=== PATIENT | female | born 1980 | race Caucasian/White ===

== ENCOUNTER 2016-12-28 13:50 | Inpatient (IN) | payer OTHER ==
[~2016-12-28] VITALS: Ht 165.1 cm; Wt 95.1 kg
[2016-12-28 13:53] VITALS: Ht 165.1 cm; Wt 95.1 kg
[2016-12-28 13:54] VITALS: BP 112/70; RESP 18
[2016-12-28] MEDS ORDERED: PREN-93 PO (13:57)
[2016-12-28] MEDS ORDERED: LACTATED RINGER'S 1,000 ML IV ONE (15:00)
[2016-12-28 15:14] LABS: ADD SCAN DIFF NO
[2016-12-28 15:17] LABS: BASOPHILS % 0.2 % (0.0-2.0); EOSINOPHILS % 0.3 % (0.0-7.0); HEMATOCRIT 34.5 % (37.0-47.0); HEMOGLOBIN 11.9 g/dl (12.0-16.0); LYMPHOCYTES # 1.2 10^3/ul (0.8-2.9); LYMPHOCYTES % 13.8 % (15.0-51.0); MEAN CORPUSCULAR HEMOGLOBIN 31.8 pg (29.0-33.0); MEAN CORPUSCULAR HGB CONC 34.5 g/dl (32.0-37.0); MEAN CORPUSCULAR VOLUME 92.2 fl (82.0-101.0); MEAN PLATELET VOLUME 9.8 fl (7.4-10.4); MONOCYTE # 0.6 10^3/ul (0.3-0.9); MONOCYTES % 6.8 % (0.0-11.0); NEUTROPHIL # 6.9 10^3/ul (1.6-7.5); NEUTROPHILS % 78.3 % (39.0-77.0); PLATELET COUNT 214 10^3/UL (140-415); RED BLOOD COUNT 3.74 10^6/ul (4.20-5.40); RED CELL DISTRIBUTION WIDTH 12.5 % (11.5-14.5); WHITE BLOOD COUNT 8.8 10^3/ul (4.8-10.8)
[2016-12-28 15:20] LABS: ADD UMIC YES; URINE BILIRUBIN (Dip) 1+ (NEGATIVE); URINE BLOOD (Dip) 3+ (NEGATIVE); URINE COLOR DK. RED (YELLOW); URINE GLUCOSE (Dip) NEGATIVE (NEGATIVE); URINE KETONES (Dip) TRACE (NEGATIVE); URINE LEUKOCYTE ESTERASE (Dip) NEGATIVE (NEGATIVE); URINE NITRITE (Dip) NEGATIVE (NEGATIVE); URINE TOTAL PROTEIN (Dip) 2+ (NEGATIVE); URINE UROBILINOGEN (Dip) 2.0 E.U./dL (0.1-1.0)
[2016-12-28 15:32] LABS: INR 0.93; PARTIAL THROMBOPLASTIN TIME 29.2 Sec (25.0-35.0); PROTIME 12.5 Sec (12.2-14.2)
--- NOTE | 2016-12-28 15:33 | RADRPT ---
PROCEDURE: US OB AND ULTRASOUND CERVIX. CLINICAL INDICATION: Vaginal bleeding TECHNIQUE: Multiple sonographic images of the pelvis and gravid uterus were obtained. The images were reviewed on a PACS workstation. Transvaginal images of the cervix were also obtained. COMPARISON: No prior studies are available for comparison. FINDINGS: The cervix is dilated up to 6 mm with echogenic debris within it. There is a single viable intrauterine gestation. Cardiac activity is present with 158 beats per min sunday. There is a vertex presentation. The placenta is posterior. There is no evidence for an abruption or placenta previa. There is a normal amount of amniotic fluid with an HUBER = 9.2 cm. Measurements were made in order to determine age. The results are as follows: BPD =7.9 cm HC =28.9 cm AC =28.6 cm FL =6.1 cm Estimated gestational age of approximately 32 weeks and 0 days based on ultrasound measurements. Clinical age: 30 weeks and 3 days. The estimated date of delivery is 02/22/2017, based on ultrasound measurements. The EFW = 1915 g, 90.6%, based on LMP age. RPTAT: AA IMPRESSION: Single viable intrauterine gestation of approximately 32 weeks and 0 days based on ultrasound measu rements. Dilated cervix up to 6 mm with echogenic debris within it. .Danial Eduardo MD, Date Time Electronically viewed and signed by .Danial Eduardo MD, on 12/28/2016 15:33 .S/
[2016-12-28 15:54] LABS: URINE RBCS >200 /HPF (0)
[2016-12-28 15:55] LABS: BACTERIA,URINE FEW; ICTOTEST NEGATIVE (NEGATIVE); SQUAMOUS EPITHELIAL CELL,UR MANY
[2016-12-28] MEDS ORDERED: MAGNESIUM SULFATE 4 GM/100 ML 100 ML IVPB ONE (17:00)
[2016-12-28] MEDS: LACTATED RINGER'S 1,000 ML IV SCH ×2 (17:01→23:00)
[2016-12-28 17:11] LABS: ALBUMIN/GLOBULIN RATIO 1.33; BILIRUBIN,INDIRECT 0.3 mg/dl (0-1.1); BILIRUBIN,TOTAL 0.3 mg/dl (0.2-1.3); CALCIUM 8.8 mg/dl (8.4-10.2); CREATININE 0.39 mg/dl (0.44-1.00); POTASSIUM 3.4 mmol/L (3.5-5.1)
[2016-12-28] MEDS: BETAMET NA PHOS/AC(6 MG/ML) 5ML INJ IM SCH (17:11)
[2016-12-28 17:23] LABS: ADD UMIC YES; URINE BILIRUBIN (Dip) NEGATIVE (NEGATIVE); URINE BLOOD (Dip) TRACE (NEGATIVE); URINE COLOR LT. YELLOW (YELLOW); URINE GLUCOSE (Dip) NEGATIVE (NEGATIVE); URINE KETONES (Dip) TRACE (NEGATIVE); URINE LEUKOCYTE ESTERASE (Dip) NEGATIVE (NEGATIVE); URINE NITRITE (Dip) NEGATIVE (NEGATIVE); URINE TOTAL PROTEIN (Dip) NEGATIVE (NEGATIVE); URINE UROBILINOGEN (Dip) 1.0 E.U./dL (0.1-1.0)
[2016-12-28] MEDS: MAGNESIUM SULFATE 20 GM/500 ML 500 ML IV SCH (17:34)
[2016-12-28 17:44] LABS: SQUAMOUS EPITHELIAL CELL,UR FEW; URINE RBCS 0-2 /HPF (0)
--- NOTE | 2016-12-28 21:12 | HP ---
DATE OF ADMISSION: 12/28/2016 HISTORY OF PRESENT ILLNESS: A 36-year-old female, 5, para 2-1-1-3, at 30 weeks' gestation presented with complaint of vaginal bleeding and spontaneous rupture of membranes. PAST MEDICAL HISTORY: Unremarkable. PAST SURGICAL HISTORY: section x3 and cholecystectomy. ALLERGIES: NO KNOWN ALLERGIES. FAMILY HISTORY: Noncontributory. PHYSICAL EXAMINATION: VITAL SIGNS: The patient is afebrile. Vital signs stable. HEAD, NECK AND CHEST: Within normal limits. ABDOMEN: Soft, nontender and gravid. EXTREMITIES: Within normal limits. NEUROLOGIC: Within normal limits. PELVIC: Vaginal bleeding was noted. There was fluid noted on the patient's pad. On external monitoring, contractions are noted. IMPRESSION: 1. at 30 weeks with previous section x3. 2. spontaneous rupture of membranes. 3. Threatened labor. PLAN: Admit, intravenous magnesium sulfate, intramuscular betamethasone, intravenous ampicillin and erythromycin. Perinatology consultation, neonatology consultation. Dictated By: AVELINO KOHLI/JUAN CARLOS Conf#: [id number] DID#: [id number] MTDD
[2016-12-28] MEDS: AMPICILLIN 2 GM/NS (PMX) 100 ML IVPB SCH (21:20)
[2016-12-28] MEDS: ERYTHROMYCIN LACTOBIONATE 500 MG in SOD CHLORIDE 0.9% 100 ML IVPB SCH (22:19)
[2016-12-29] MEDS: AMPICILLIN 2 GM/NS (PMX) 100 ML IVPB SCH ×5 (03:22→22:12)
[2016-12-29] MEDS: MAGNESIUM SULFATE 20 GM/500 ML 500 ML IV SCH ×3 (04:00→23:26)
[2016-12-29] MEDS: ERYTHROMYCIN LACTOBIONATE 500 MG in SOD CHLORIDE 0.9% 100 ML IVPB SCH ×4 (04:03→23:23)
[2016-12-29] MEDS: LACTATED RINGER'S 1,000 ML IV SCH ×3 (07:00→23:00)
--- NOTE | 2016-12-29 15:23 | PERINOTE ---
Date/Time of Note Date/Time of Note DATE: 12/29/16 TIME: 15:11 Assessment/Recommendations Assessment: labor, rupture of membranes Other Assessments size greater than expected. No recent diabetes screen results are provided. Recommendations: Would continue as you are doing with ampicillin/erythromycin for a total of 7 days, betamethasone x 2, magnesium sulfate only until betamethasone completed. Would consider HgbA1c due to large size with no recent diabetes screening documented. Would deliver for progressive labor, or maternal distress, including evidence of infection or at 34 weeks GA if the patient continues to lose amniotic fluid. OB Subjective Free Text/Dictaton Patient admitted with bleeding and loss of fluid, being treated for PPROM and labor HD# 2 IUP @ 30W1D Complaints/Overnight events Patient reports reduction in bleeding. US reveals EFW 90%ile. Prior US done in preinatology clinic have been consistent with LMP KELLY of 03/04/17. Current Medications Current Medications Lactated Ringer's 1,000 ml @ 125 mls/hr Q8H IV Last administered on 12/29/16 11:52; Admin Dose 125 MLS/HR; Start 12/28/16 at 15:00 Magnesium Sulfate (Magnesium Sulfate 20 Gm/500 ml) 500 ml @ 50 mls/hr Q10H IV Last administered on 12/29/16 13:17; Admin Dose 50 MLS/HR; Start 12/28/16 at 17: 00 Betamethasone Acet/Betameth SodPhos 12 mg 12 mg Q24H IM Last administered on 17:11; Admin Dose 12 MG; Start 12/28/16 at 17:00; Stop 12/29/16 at 17:01 Ampicillin 100 ml @ 100 mls/hr Q6 IVPB Last administered on 12/29/16 11:07; Admin Dose 100 MLS/HR; Start 12/28/16 at 21:00 Erythromycin Lactobionate/ Sodium Chloride (Erythromycin Lactobionate/NS) 100 ml @ 100 mls/hr Q6H IVPB Last administered on 12/29/16 09:57; Admin Dose 100 MLS/HR; Start 12/28/16 at 22:00 Past Medical History Medical History: no pertinent history Surgical History: cholecystectomy [employer] History: other (Prior x 3. Hemorrhage after third) Para: 3 (One delivery at 35 weeks) : 5 LMP (Females 10-50): Family History Significant Family History: no pertinent family hx OB Admission Exam Physical Exam Vitals: Vital Signs Date Time Temp Pulse Resp B/P Pulse Ox O2 Delivery O2 Flow Rate FiO2 12/28/16 13:54 98.2 18 112/70 Room Air 12/29/16 98.1 93 113/65 Heart: Rhythm Normal Lungs: Clear Abdomen: WNL Reflexes: Normal Heart Rate: 120's Accelerations: Accelerations Present Decelerations: No Decelerations Varibility: Moderate Contractions on Admission: None Last 72 hours Lab Results CBC & BMP 12/28/16 15:07 Liver Function Test 12/28/16 15:07 Alanine Aminotransferase (ALT/SGPT) 22 Albumin 4.0 Alkaline Phosphatase 285 H Aspartate Amino Transf (AST/SGOT) 16 Direct Bilirubin 0.00 Total Protein 7.0 Magnesium Level Test 12/29/16 00:36 12/29/16 06:11 12/29/16 12:07 Magnesium Level 4.8 H 5.2 *H 5.2 *H Copies To: CC: AVELINO PHAM MD, MARIE H MD Dec 29, 2016 15:23
[2016-12-29] MEDS: BETAMET NA PHOS/AC(6 MG/ML) 5ML INJ IM SCH (17:10)
[2016-12-29 18:16] LABS: BARBITURATES NEGATIVE (NEGATIVE); BENZODIAZEPINES NEGATIVE (NEGATIVE); CANNABINOIDS NEGATIVE (NEGATIVE); COCAINE NEGATIVE (NEGATIVE); OPIATES NEGATIVE (NEGATIVE)
--- NOTE | 2016-12-29 20:10 | QN ---
Documentation Comment c/o occasional contractions, leakage of fluid and vaginal bleeding. Afebrile VSS Abdomen soft NT Strip Reactive Stable Continue with magnesium sulfate, betamethasone, ampicillin and erythromycin. AVELINO PHAM MD Dec 29, 2016 20:10
[2016-12-29] MEDS ORDERED: ACETAMINOPHEN 325 MG TAB PO ONE (20:30)
[2016-12-30] MEDS: AMPICILLIN 2 GM/NS (PMX) 100 ML IVPB SCH ×4 (04:19→21:54)
--- NOTE | 2016-12-30 05:09 | QN ---
Documentation Comment Nurses unable to reach patient's physician, Dr. Izaguirre. Called me to assess vaginal bleeding. Patient is admitted for PPROM at 30 wks, h/o prior c/d x 3. SVE- FT/L/P; amniotic fluid mixed w blood noted previous sono showed placenta to be posterior A/P: c/w magnesium sulfate, s/p second dose of betamethasone will order sono to evaluate placenta and r/o abruption BIANCA MENDOZA MD Dec 30, 2016 05:09
[2016-12-30] MEDS: ERYTHROMYCIN LACTOBIONATE 500 MG in SOD CHLORIDE 0.9% 100 ML IVPB SCH ×4 (05:10→22:53)
[2016-12-30] MEDS: LACTATED RINGER'S 1,000 ML IV SCH ×2 (06:33→08:01)
--- NOTE | 2016-12-30 06:40 | RADRPT ---
PROCEDURE: ULTRASOUND OBSTETRICAL CLINICAL INDICATION: 36-year-old female with bleeding. TECHNIQUE: Multiple sonographic images of the pelvis were obtained. The images were reviewed on a PACS workstation. COMPARISON: Ultrasound OB December 28, 2016. FINDINGS: The cervix is not visualized. There is a single viable intrauterine gestation. Cardiac activity is present with 125 beats per minute. There is a vertex presentation. The placenta is posterior. There is no evidence for an abruption or placenta previa. IMPRESSION: Single viable intrauterine gestation with vertex presentation. .Cesar Malhotra MD, MD Date Time Electronically viewed and signed by .Cesar Malhotra MD, on 12/30/2016 06:40 .M/
[2016-12-30] MEDS: MAGNESIUM SULFATE 20 GM/500 ML 500 ML IV SCH ×2 (10:21→21:12)
--- NOTE | 2016-12-30 13:09 | CONS ---
DATE OF ADMISSION: 12/28/2016 DATE OF CONSULTATION: 12/30/2016 REFERRING PHYSICIAN: Chris Izaguirre MD I was asked to talk with this mother who is a 36-year-old 5, para 3, AB 1, living 3 with a 3 0.4 weeks' in labor. Mother's labs are as follows: Blood group O positi ve, RPR nonreactive, HBsAg negative, HIV negative and GBS unknown. Mother also had bleeding with pr eterm labor. She received betamethasone on 12/28/2016 and was also started on magnesium sulfate and antibiotics on 12/28/2016. The estimated weight is 1915 grams. EDC 03/05/2017. I spoke with mother about the fetus being 30.4 weeks at risk for respiratory distress, including quin atment with oxygen administration, high-flow nasal cannula, CPAP as well as ventilation if needed. I also discussed about the risks and benefits of oxygen administration as well as CPAP. Discussed a bout the possibility for administration of Curosurf if the 's oxygen requirement is greater th an 40% and if infant has respiratory distress syndrome. I also discussed about the risk of apnea of prematurity and treatment with caffeine as well as nasal cannula and CPAP if needed. Discussed abo ut risk of infection and treatment with antibiotics initially and subsequently to be monitored for s epsis. Also discussed about risk for hyperbilirubinemia, electrolyte imbalance, possible anemia and rare incidence of blood transfusion in this gestational age. Discussed about IV nutrition initiall y and infant to be started on feedings when clinically stable by tube feedings. Mother states that she did not breast feed any of the other children. Encouraged her to pump breast milk and provide a s the is premature and discussed about the benefits of breast milk. Discussed about increasi ng feedings gradually and weaning off IV fluids and possibility a PICC line placement if there is di fficulty with the IV access or feeding intolerance. Discussed also about risk of gastroesophageal r eflux as well as risk of necrotizing enterocolitis. Discussed about good prognosis with survival of greater than 95% and rare risk of complications incl uding intraventricular hemorrhage as well as risk of neurodevelopmental delay. Discussed about kylah th of hospitalization of 4 to 6 weeks or longer depending on 's clinical stability as well as treatment response. All parent's questions were answered. They were reassured about good prognosis and the discussion was concluded when parents had no further questions. Dictated By: DALIA NANCE/JUAN CARLOS Conf#: [id number] DID#: [id number]
--- NOTE | 2016-12-30 18:09 | QN ---
Documentation Comment No complaint Afebrile VSS Strip Categrory I Continue with present care. AVELINO PHAM MD Dec 30, 2016 18:09
--- NOTE | 2016-12-30 19:52 | RADRPT ---
PROCEDURE: Limited OB ultrasound. CLINICAL INDICATION: Amniotic fluid volume. Premature rupture of membranes TECHNIQUE: Sonographic evaluation to assess the amniotic fluid volume was performed. Transabdomin al imaging of the gravid uterus was performed. COMPARISON: 12/30/2016 FINDINGS: Single live intrauterine with cardiac activity is identified. The amniotic fluid in dex equals 5.4 cm. Cephalic presentation. Heart rate 122 beats per minute. Fundal grade 1 placent a. IMPRESSION: 1. Amniotic fluid index equals 5.4 cm. RPTAT: QQ .Alan Layton MD, MD Date Time Electronically viewed and signed by .Alan Layton MD, MD on 12/30/2016 19:51 .L/
[2016-12-31] MEDS: LACTATED RINGER'S 1,000 ML IV SCH ×4 (00:54→23:00)
[2016-12-31] MEDS: AMPICILLIN 2 GM/NS (PMX) 100 ML IVPB SCH ×4 (03:34→22:00)
[2016-12-31] MEDS: ERYTHROMYCIN LACTOBIONATE 500 MG in SOD CHLORIDE 0.9% 100 ML IVPB SCH ×4 (04:57→22:00)
--- NOTE | 2016-12-31 07:58 | RADRPT ---
PROCEDURE: XR Chest. CLINICAL INDICATION: Decreased breath sounds. TECHNIQUE: Single frontal chest x-ray. COMPARISON: None. FINDINGS: The lungs are clear. No focal opacification is seen. Lung volumes are diminished with compressive changes. The cardiomediastinal silhouette is unremarkable. The osseous structures are unremarkable . IMPRESSION: 1. Diminished lung volumes with compressive changes. 2. Otherwise, unremarkable chest x-ray. RPTAT: PP .Shan Davis MD, MD Date Time Electronically viewed and signed by .Shan Davis MD, on 12/31/2016 07:58 .B/
[2016-12-31] MEDS ORDERED: DOCUSATE SODIUM 100 MG CAP PO SCH (09:00)
[2016-12-31] MEDS ORDERED: FERROUS SULFATE (EC) 325 MG TAB PO SCH (09:00)
[2016-12-31] MEDS ORDERED: MULTIVIT/MIN/FOLATE/IRON/PREN TAB PO SCH (09:00)
--- NOTE | 2016-12-31 18:41 | QN ---
Documentation Comment Patient with occasional contractions, leakage of fluid and vaginal spotting. Afebrile VSS Abdomen soft NT Cervix closed Tracing Reactive Patient is off magnesium sulfate. Continue with antibiotics. AVELINO PHAM MD Dec 31, 2016 18:41
[2016-12-31] MEDS ORDERED: BUTORPHANOL 2 MG INJ IV PRN (19:00)
[2016-12-31 20:35] LABS: ADD SCAN DIFF NO
[2016-12-31 20:37] LABS: BASOPHILS % 0.2 % (0.0-2.0); HEMATOCRIT 31.9 % (37.0-47.0); HEMOGLOBIN 10.5 g/dl (12.0-16.0); LYMPHOCYTES # 1.4 10^3/ul (0.8-2.9); LYMPHOCYTES % 15.3 % (15.0-51.0); MEAN CORPUSCULAR HEMOGLOBIN 31.3 pg (29.0-33.0); MEAN CORPUSCULAR HGB CONC 32.9 g/dl (32.0-37.0); MEAN CORPUSCULAR VOLUME 95.2 fl (82.0-101.0); MEAN PLATELET VOLUME 9.8 fl (7.4-10.4); MONOCYTE # 0.8 10^3/ul (0.3-0.9); MONOCYTES % 8.6 % (0.0-11.0); NEUTROPHILS % 74.7 % (39.0-77.0); PLATELET COUNT 219 10^3/UL (140-415); RED BLOOD COUNT 3.35 10^6/ul (4.20-5.40); RED CELL DISTRIBUTION WIDTH 12.9 % (11.5-14.5); WHITE BLOOD COUNT 9.3 10^3/ul (4.8-10.8)
[2016-12-31 20:52] LABS: INR 0.92; PARTIAL THROMBOPLASTIN TIME 24.7 Sec (25.0-35.0); PROTIME 12.4 Sec (12.2-14.2)
[2016-12-31] MEDS ORDERED: METHYLERGONOVINE 0.2 MG INJ IM PRN (21:00)
[2016-12-31] MEDS ORDERED: MISOPROSTOL 200 MCG TAB PR PRN (21:00)
[2016-12-31] MEDS ORDERED: CARBOPROST 250 MCG INJ IM PRN (21:00)
[2016-12-31] MEDS ORDERED: CEFAZOLIN 2 GM/50 ML (PMX) 50 ML IV SCH (21:00)
[2016-12-31] MEDS ORDERED: OXYTOCIN 30 UNITS/LR 500 ML IV PRN (21:00)
--- NOTE | 2016-12-31 22:25 | QN ---
Documentation Comment called for coverage for one of Dr boucher patient at 30w6d who was admitted for PPROM happened on 12/28/16,has been in the hospital with vaginal bleeding and pprom s/p bmz and magnesium sulfate , been on ampicillin and erythromycin was examined by her OB 1800 today closed. approximately 2hr after reported she was krupa 2-3 min apart, found to be 1cm 60% -2 who had x3 previous ccesarean section. one was delivered at 35w and hemorrhage after last section juan was called for green light for RC/S and BTL which was planned. after blood product ready plan to RC/S BTL upon my arrival patient was taken to OR for procedure and reported me of status which was completedilatation of cervix 0 station decision for normal vaginal delivery CADENCE JAIME MD Dec 31, 2016 22:25
--- NOTE | 2016-12-31 22:31 | LDN ---
Date/Time of Note Date/Time of Note DATE: 12/31/16 TIME: 22:25 Delivery Summary upon exam large blood clot was escaping from vagina f/b head was covered with blood clot comingout normal vaginal delivery abrutio placenta was noted marginal Weeks of Gestation 30w6d Placenta Delivered: Spontaneously Episiotomy: No Perineal laceration: 0 Anesthesia type: None Estimated blood loss: 300 Sponge & Needle done & correct: Yes All needle counts correct: Yes Any foreign bodies felt in the: No Problems: Delivery Information Sex Sex: male Apgars 1 Minute: 8 5 Minute: 9 Suctioning Nose & mouth suctioned at juan: Yes Delee suction performed: Yes Umbilical Cord Umbilical cord with: 3 Vessels Cord presentations: no nuchal cord Cord Blood was obtained: Yes Mother & Baby Disposition Disposition Mom & Baby to Maternity; Good: Yes Mom transferred to: Other () Baby to NICU: Yes CADENCE JAIME MD Dec 31, 2016 22:31
[2016-12-31] MEDS: OXYTOCIN 30 UNITS/LR 500 ML IV SCH (23:36)
[2017-01-01] MEDS ORDERED: ONDANSETRON 4 MG INJ IV STA ×2 (00:56→00:59)
[2017-01-01] MEDS ORDERED: ONDANSETRON 4 MG INJ ONE (00:59)
[2017-01-01 01:15] VITALS: BP 119/66; PULSE 65; RESP 20
[2017-01-01] MEDS ORDERED: METHYLERGONOVINE 0.2 MG INJ IM PRN (02:00)
[2017-01-01] MEDS ORDERED: LANOLIN 7 GM TUBE TOP PRN (02:00)
[2017-01-01] MEDS ORDERED: OXYTOCIN 30 UNITS/LR 500 ML IV PRN (02:00)
[2017-01-01] MEDS ORDERED: CARBOPROST 250 MCG INJ IM PRN (02:00)
[2017-01-01] MEDS ORDERED: OXYCODONE/ASPIRIN (4.88/325) TAB PO PRN ×2 (02:00)
[2017-01-01] MEDS ORDERED: BENZOCAINE 20% 56 ML SPRAY TOP PRN (02:00)
[2017-01-01] MEDS ORDERED: ZOLPIDEM 5 MG TAB PO PRN (02:00)
[2017-01-01] MEDS ORDERED: WITCH HAZEL/GLYCERIN PAD PR PRN (02:00)
[2017-01-01] MEDS ORDERED: MISOPROSTOL 200 MCG TAB PR PRN (02:00)
[2017-01-01] MEDS: OXYTOCIN 30 UNITS/LR 500 ML IV SCH ×5 (03:21→19:00)
[2017-01-01 04:00] VITALS: BP 106/61; PULSE 71; RESP 20
[2017-01-01] MEDS: IBUPROFEN 600 MG TAB PO SCH ×3 (05:42→17:28)
[2017-01-01 06:38] LABS: ADD SCAN DIFF NO
[2017-01-01 06:54] LABS: BASOPHILS % 0.1 % (0.0-2.0); HEMOGLOBIN 10.1 g/dl (12.0-16.0); LYMPHOCYTES # 1.1 10^3/ul (0.8-2.9); LYMPHOCYTES % 8.1 % (15.0-51.0); MEAN CORPUSCULAR HEMOGLOBIN 30.6 pg (29.0-33.0); MEAN CORPUSCULAR HGB CONC 32.6 g/dl (32.0-37.0); MEAN CORPUSCULAR VOLUME 93.9 fl (82.0-101.0); MEAN PLATELET VOLUME 10.1 fl (7.4-10.4); MONOCYTE # 0.8 10^3/ul (0.3-0.9); MONOCYTES % 6.2 % (0.0-11.0); NEUTROPHIL # 11.1 10^3/ul (1.6-7.5); PLATELET COUNT 197 10^3/UL (140-415); RED CELL DISTRIBUTION WIDTH 12.6 % (11.5-14.5)
[2017-01-01 08:00] VITALS: BP 89/53; PULSE 68; RESP 18
[2017-01-01] MEDS ORDERED: LACTATED RINGER'S 1,000 ML IV SCH (08:00)
[2017-01-01] MEDS: LACTATED RINGER'S 1,000 ML IV SCH ×2 (08:00→16:00)
[2017-01-01] MEDS: SENNA/DOCUSATE NA (8.6MG/50MG) TAB PO SCH ×2 (09:05→22:04)
[2017-01-01 16:00] VITALS: BP 97/67; PULSE 69; RESP 18
--- NOTE | 2017-01-01 18:47 | QN ---
Documentation Comment No complaint Afebrile VSS Fundus Firm Lochia Scant PPD #1 Stable Routine PP care. AVELINO PHAM MD Jan 01, 2017 18:47
[2017-01-01 19:35] VITALS: BP 102/64; PULSE 71; RESP 17
[2017-01-02] MEDS: IBUPROFEN 600 MG TAB PO SCH ×3 (00:36→13:23)
[2017-01-02 04:00] VITALS: BP 107/72; PULSE 64; RESP 17
[2017-01-02 08:31] VITALS: BP 105/64; PULSE 64; RESP 17
[2017-01-02] MEDS ORDERED: DIPHTH/TET/ACEL PERTUSS (ADULT) 0.5 ML VIAL IM* ONE (09:00)
[2017-01-02] MEDS: SENNA/DOCUSATE NA (8.6MG/50MG) TAB PO SCH (09:06)
--- NOTE | 2017-01-02 14:51 | DS ---
Date/Time of Note Date/Time of Note DATE: 01/02/17 TIME: 14:49 Obstetrical Discharge Record Final Diagnosis Final Diagnosis: delivered Vaginal Delivery Obstetrical Delivery: Spontaneous Complications Third Trimester Bleeding: Abruptio Tocolytics: Magnesium Sulfate Rupture of Membranes: Yes Gestational Age at Rupture 30 weeks Condition on Discharge Physical Assessment Voiding: Yes Bowel Movement: Yes Breast: Soft, non-tender Fundus: Firm Calf Tenderness: No Patient Condition: Stable AVELINO PHAM MD Jan 02, 2017 14:51
== END 2017-01-02 16:57 | disposition home or self-care (01) | DRG 775 ==
LOC: OBT 13:50 → L-D 13:51 → OBT 15:52 → L-D 15:52 → PP1 01-01 01:15
PROVIDERS: ADMIT Obstetrics & Gynecology; ATTEND Obstetrics & Gynecology
PROC: 10E0XZZ Delivery of Products of Conception, External Approach (ICD-10-PCS; principal; 2016-12-31)
DX: O60.14X0 Preterm labor third trimester with preterm delivery third trimester, not applicable or unspecified (principal); O34.219 Maternal care for unspecified type scar from previous cesarean delivery; O42.913 Preterm premature rupture of membranes, unspecified as to length of time between rupture and onset of labor, third trimester; Z3A.30 30 weeks gestation of pregnancy; Z37.0 Single live birth
CPT/HCPCS: 71010; 76815; 76817; 80053; 80307; 81001; 83036; 83735; 85025; 85384; 85610; 85730; 86592; 86706; 86850; 86900; 86901; 86920; 87086; 87340; 88307; 90715; 99464; G0463; J0290; J0595; J0690; J0702; J1364; J2405; J2590; J3475; J7120